=== PATIENT | female | born 1945 | race Caucasian/White ===

== ENCOUNTER → 2017-11-26 | Outpatient (CLI) | payer MEDICARE | LOC: M PLARAD 10:01 | DX: M16.11 Unilateral primary osteoarthritis, right hip (principal) | CPT/HCPCS: 73721 ==

== ENCOUNTER → 2017-12-11 | Outpatient (CLI) | payer MEDICARE | LOC: M RAD 11:03 | DX: M51.26 Other intervertebral disc displacement, lumbar region (principal) | CPT/HCPCS: 72148 ==

== ENCOUNTER → 2017-12-14 | Outpatient (CLI) | payer MEDICARE ==
[~2017-12-14] MED LIST: CONRAY-43 43% 50ML VIAL (Q9960) As Ordered; LIDOCAINE 1% MDV 20ML VIAL As Ordered; methylPREDNISolone SUSP 40 MG/ML (DEPO-medrol) VIAL (J1030) As Ordered
== END ==
LOC: M RADPRO 10:38
DX: M70.61 Trochanteric bursitis, right hip (principal)
CPT/HCPCS: 20610

== ENCOUNTER → 2018-01-19 | Outpatient (CLI) | payer MEDICARE | LOC: M PAIN 09:00 | DX: M79.1 Myalgia (principal); M25.511 Pain in right shoulder; G89.29 Other chronic pain; I10 Essential (primary) hypertension; J45.909 Unspecified asthma, uncomplicated; K21.9 Gastro-esophageal reflux disease without esophagitis; G47.33 Obstructive sleep apnea (adult) (pediatric); E03.9 Hypothyroidism, unspecified; E78.00 Pure hypercholesterolemia, unspecified; K44.9 Diaphragmatic hernia without obstruction or gangrene; Z79.899 Other long term (current) drug therapy; Z88.0 Allergy status to penicillin; Z88.1 Allergy status to other antibiotic agents; Z88.5 Allergy status to narcotic agent; Z88.8 Allergy status to other drugs, medicaments and biological substances; Z91.09 Other allergy status, other than to drugs and biological substances; Z91.030 Bee allergy status; Z87.39 Personal history of other diseases of the musculoskeletal system and connective tissue | CPT/HCPCS: G0463 ==

== ENCOUNTER → 2018-03-03 | Outpatient (CLI) | payer MEDICARE | LOC: M PAIN 14:15 | DX: M79.1 Myalgia (principal); M25.511 Pain in right shoulder; G89.29 Other chronic pain; I10 Essential (primary) hypertension; J45.909 Unspecified asthma, uncomplicated; E03.9 Hypothyroidism, unspecified; E78.00 Pure hypercholesterolemia, unspecified; Z79.899 Other long term (current) drug therapy; Z88.0 Allergy status to penicillin; Z88.1 Allergy status to other antibiotic agents; Z88.5 Allergy status to narcotic agent; Z88.8 Allergy status to other drugs, medicaments and biological substances; Z91.09 Other allergy status, other than to drugs and biological substances; Z91.030 Bee allergy status; G47.33 Obstructive sleep apnea (adult) (pediatric); Z87.39 Personal history of other diseases of the musculoskeletal system and connective tissue | CPT/HCPCS: G0463 ==

== ENCOUNTER → 2018-03-22 | Outpatient (CLI) | payer MEDICARE ==
[~2018-03-22] MED LIST changes: +BUPIVACAINE HCL 0.25% 30 ML VIAL As Ordered; -CONRAY-43 43% 50ML VIAL (Q9960) As Ordered; -LIDOCAINE 1% MDV 20ML VIAL As Ordered; +TRIAMCINOLONE ACETONIDE SUSP 40 MG/ML VIAL (J3301) As Ordered; -methylPREDNISolone SUSP 40 MG/ML (DEPO-medrol) VIAL (J1030) As Ordered
== END ==
LOC: M PAIN 14:45
DX: M79.18 Myalgia, other site (principal); I10 Essential (primary) hypertension; J45.909 Unspecified asthma, uncomplicated; M10.9 Gout, unspecified; G47.33 Obstructive sleep apnea (adult) (pediatric); E03.9 Hypothyroidism, unspecified; E78.00 Pure hypercholesterolemia, unspecified; K21.9 Gastro-esophageal reflux disease without esophagitis; K44.9 Diaphragmatic hernia without obstruction or gangrene; Z91.030 Bee allergy status; Z91.048 Other nonmedicinal substance allergy status; Z88.5 Allergy status to narcotic agent; Z88.0 Allergy status to penicillin; Z88.8 Allergy status to other drugs, medicaments and biological substances; Z79.899 Other long term (current) drug therapy
CPT/HCPCS: J3301

== ENCOUNTER → 2018-04-05 | Outpatient (CLI) | payer MEDICARE | LOC: M PAIN 15:15 | DX: M79.18 Myalgia, other site (principal); M25.511 Pain in right shoulder; G89.29 Other chronic pain; I10 Essential (primary) hypertension; J45.909 Unspecified asthma, uncomplicated; G47.33 Obstructive sleep apnea (adult) (pediatric); E03.9 Hypothyroidism, unspecified; E78.00 Pure hypercholesterolemia, unspecified; K44.9 Diaphragmatic hernia without obstruction or gangrene; Z79.899 Other long term (current) drug therapy; Z88.0 Allergy status to penicillin; Z88.1 Allergy status to other antibiotic agents; Z88.5 Allergy status to narcotic agent; Z88.8 Allergy status to other drugs, medicaments and biological substances; Z91.09 Other allergy status, other than to drugs and biological substances; Z91.030 Bee allergy status; Z87.39 Personal history of other diseases of the musculoskeletal system and connective tissue | CPT/HCPCS: G0463 ==

== ENCOUNTER → 2018-05-06 | Outpatient (CLI) | payer MEDICARE | LOC: M PAIN 16:00 | DX: M79.18 Myalgia, other site (principal); M25.511 Pain in right shoulder; G89.29 Other chronic pain; I10 Essential (primary) hypertension; J45.909 Unspecified asthma, uncomplicated; E03.9 Hypothyroidism, unspecified; E78.00 Pure hypercholesterolemia, unspecified; G47.33 Obstructive sleep apnea (adult) (pediatric); K44.9 Diaphragmatic hernia without obstruction or gangrene; E66.01 Morbid (severe) obesity due to excess calories; Z68.41 Body mass index [BMI] 40.0-44.9, adult; Z79.899 Other long term (current) drug therapy; Z88.0 Allergy status to penicillin; Z88.1 Allergy status to other antibiotic agents; Z88.5 Allergy status to narcotic agent; Z88.8 Allergy status to other drugs, medicaments and biological substances; Z91.09 Other allergy status, other than to drugs and biological substances; Z91.030 Bee allergy status; Z87.39 Personal history of other diseases of the musculoskeletal system and connective tissue | CPT/HCPCS: G0463 ==

== ENCOUNTER → 2018-06-24 | Outpatient (CLI) | payer MEDICARE ==
--- NOTE | 2018-06-27 09:37 | REP ---
MRI RIGHT SHOULDER WITHOUT CONTRAST: HISTORY: Pain in the right shoulder. Pain, numbness and tingling after a fall on May 24. Rule out rotator cuff tear. There appear to be micrometallic postoperative artifacts adjacent to the acromion process and distal clavicle suggesting prior surgery although I did not get a history of this. There is irregularity of the undersurface of the acromion process with some bony hypertrophy. Mild AC joint hypertrophy is seen. The AC joint appears slightly widened. This may be postoperative. Cortical and medullary bone signal intensity are otherwise normal. There is a small subacromial subdeltoid bursal effusion. There is a focal T2 hyperintense lesion in the supraspinatus tendon at 12-o'clock position on the humeral head on oblique coronal T1-weighted scans consistent with a fairly large but incomplete intra substance cuff tear. There is T2 hyperintensity at the distal insertion of the supraspinatus tendon as well, which may be partial or full thickness. No retracted tear is seen. The subscapularis tendon shows tendinosis changes and thickening. Infraspinatus tendon is unremarkable. Biceps tendon is seen in the bony bicipital groove and appears to be intact. There is mild chondromalacia on the humeral head and glenoid centrally. No jeffrey labral tear is seen. No juxta-articular cyst or mass is seen. IMPRESSION: AC joint osteoarthritis. The patient appears to be status post subacromial decompression surgery. There is a small bursal effusion. There are two focal T2 hyperintense lesions in the supraspinatus tendon as above. Glenohumeral chondromalacia. Electronically Signed by Akhil Galicia MD 06/27/2018 10:40 A
== END ==
LOC: M RAD 15:43
PROVIDERS: ATTEND Orthopaedic Surgery Sports Medicine
DX: M25.511 Pain in right shoulder (principal)

== ENCOUNTER → 2019-03-03 | Outpatient (CLI) | payer MEDICARE ==
--- NOTE | 2019-03-03 17:00 | REP ---
MRI lumbar spine without contrast: History: Spinal stenosis. Low back pain going down both legs. Remote fall from a ladder. Comparison study: December 11, 2017. Technique: Sagittal and axial T1 and T2-weighted scans are acquired in the usual fashion with and without fat saturation. Sequences include spin echo, turbo spin-echo, and STIR imaging sequences. MRI findings: Lumbar vertebral body heights are preserved. There is slight straightening as before. There is a 1.2 cm cortical cyst in the right kidney. No other extra vertebral abnormality is observed. Normal caliber aorta is seen. There is advanced degenerative disc narrowing and desiccation of the L4-5 disc level with reactive marrow changes on either side of the L4-5 disc level. This is unchanged. At L4-5, there is moderate central canal stenosis again noted due to developmentally short pedicles, moderate facet and ligamentum flavum hypertrophy, and diffuse disc bulging. These findings do not appear changed in comparison with the December 11, 2017 study. There is bulging of the foraminal disc segments as well producing bilateral foraminal narrowing. This appears unchanged as well. AP dimension of the thecal sac in the midline at L4-5 is 7.4 mm. There is facet hypertrophy bilaterally. At L5-S1, there is diffuse mild disc bulging. No central canal stenosis or foraminal narrowing is seen. Moderate facet hypertrophy is noted bilaterally. The findings are unchanged at L5-S1. At L3-4, no significant disc bulging or protrusion is seen. At L2-3, there is degenerative disc narrowing. No disc protrusion, central canal stenosis or foraminal narrowing is seen. At L1-2, there is mild diffuse disc bulging unchanged. Impression: Degenerative spondylosis changes stable radiographically from the December 11, 2017 study. Moderate central canal stenosis is again noted at L4-5. Electronically Signed by Akhil Galicia MD 03/03/2019 05:02 P
== END ==
LOC: M PLARAD 15:16
PROVIDERS: ATTEND Physician Assistant
DX: M48.061 Spinal stenosis, lumbar region without neurogenic claudication (principal); M51.26 Other intervertebral disc displacement, lumbar region; M47.816 Spondylosis without myelopathy or radiculopathy, lumbar region

== ENCOUNTER 2023-04-06 06:22 | Day surgery (SDC) | payer MEDICARE ==
[~2023-04-06] VITALS: Ht 154.9 cm; Wt 92.0 kg
[~2023-04-06 06:22] MED LIST changes: +ACET-897 PO; -BUPIVACAINE HCL 0.25% 30 ML VIAL As Ordered; +CYCLOPENTOLATE 1% OPHTH SOLN 2ML BTL OD SCH; +LOSA100T46 PO; +OFLOXACIN 0.3 % (OCUFLOX) OPTH SOL 5ML OD SCH; +PHENYLEPHRINE 2.5% OPHTH SOL 2ML OD SCH; +PROPARACAINE 0.5% OPHTH SOL 15ML OD ONE; +SYNT137T7 PO; -TRIAMCINOLONE ACETONIDE SUSP 40 MG/ML VIAL (J3301) As Ordered; +TROPICAMIDE 1% OPHTH SOLN 15ML OD SCH; +VITA1CAP25 PO
[2023-04-06] MEDS ORDERED: LIDOCAINE 1% SDV 5ML VIAL As Ordered ONE (06:43)
[2023-04-06] MEDS ORDERED: TOBRADEX OPHTH OINT 3.5 GM As Ordered ONE (06:43)
[2023-04-06] MEDS ORDERED: BSS IRR 500ML/OMIDRIA 4ML IRR BAG (OR ONLY) As Ordered ONE (06:43)
[2023-04-06] MEDS ORDERED: fentaNYL 100 MCG/2 ML INJECTION As Ordered ONE (07:04)
[2023-04-06] MEDS ORDERED: MIDAZOLAM INJ 2MG/2ML VIAL As Ordered ONE (07:04)
[2023-04-06] MEDS ORDERED: MOXIFLOXACIN 0.6MG/0.4ML INTRAOCULAR SYRINGE IO ONE ×2 (08:30)
[2023-04-06 08:48] VITALS: BP 180/82; TEMP 97.2; O2SAT 97
== END 2023-04-06 09:00 | disposition home or self-care (01) ==
LOC: M SDC 06:22
PROVIDERS: ATTEND Ophthalmology
DX: H25.11 Age-related nuclear cataract, right eye (principal); I10 Essential (primary) hypertension; E03.9 Hypothyroidism, unspecified; Z79.899 Other long term (current) drug therapy; Z79.890 Hormone replacement therapy; Z88.0 Allergy status to penicillin; Z91.048 Other nonmedicinal substance allergy status; Z88.5 Allergy status to narcotic agent; Z88.8 Allergy status to other drugs, medicaments and biological substances; Z91.018 Allergy to other foods
CPT/HCPCS: 66984; J1097; J2250; J3010; V2632

== ENCOUNTER → 2023-05-26 | Outpatient (REF) | payer MEDICARE ==
[~2023-05-26] MED LIST changes: -CYCLOPENTOLATE 1% OPHTH SOLN 2ML BTL OD SCH; -OFLOXACIN 0.3 % (OCUFLOX) OPTH SOL 5ML OD SCH; -PHENYLEPHRINE 2.5% OPHTH SOL 2ML OD SCH; -PROPARACAINE 0.5% OPHTH SOL 15ML OD ONE; -TROPICAMIDE 1% OPHTH SOLN 15ML OD SCH
== END ==
LOC: M LAB REF 13:29
PROVIDERS: ATTEND Ophthalmology
DX: D23.121 Other benign neoplasm of skin of left upper eyelid, including canthus (principal)

== ENCOUNTER → 2023-07-22 | Outpatient (CLI) | payer MEDICARE | LOC: M RAD 08:58 | PROVIDERS: ATTEND Internal Medicine Nephrology | DX: I70.1 Atherosclerosis of renal artery (principal) ==